=== PATIENT | female | born 1955 | race Caucasian/White ===

== ENCOUNTER 2019-06-01 19:40 | Observation (INO) | payer MEDICARE, OTHER ==
[2019-06-01] MEDS ORDERED: ASPIRIN 81 MG CHEW TAB ONE (19:48)
[2019-06-01] MEDS ORDERED: ASPIRIN 81 MG CHEW TAB PO ONE (19:50)
--- NOTE | 2019-06-01 19:52 | ED Physician Documentation ---
General Adult - HISTORIAN Historian: patient - HPI Stated Complaint: chest pain Chief Complaint: General Adult Onset: hours Timing: still present Severity: moderate Further Comments: yes (Pt is a 63 yo female with c/o chest pain. Pain is in central chest and does not radiate. Pt wonders if it could be heartburn. Pt denies n/v, diaphoreis, sob. Pt states she has strong family hx CAD. Mother with CAD at age 58. Sister with [place] < 6 mos ago, age 58. Pt presents with tachycardia. Pt has hx anxiety and took an Ativan tablet on her way here to ER.) - ROS CONST: no problems EYES/ENT: none CVS/RESP: chest pain, other (rapid heart rate) GI/: none MS/SKIN/LYMPH: none - PAST HX Past History: other (GERD, Anxiety, HLD, HTN) Allergies/Adverse Reactions: Allergies Allergy/AdvReac Type Severity Reaction Status Date / Time lamotrigine [From Lamictal] Allergy Mild Anaphylaxis Verified 06/01/19 20:48 acetaminophen [From Percocet] AdvReac Severe Rash Verified 06/01/19 20:48 atorvastatin [From Lipitor] AdvReac Severe Hives Verified 06/01/19 20:48 clopidogrel [From Plavix] AdvReac Severe Hives Verified 06/01/19 20:48 codeine AdvReac Severe Rash Verified 06/01/19 20:48 oxycodone [From Percocet] AdvReac Severe Rash Verified 06/01/19 20:48 tramadol AdvReac Severe Vomiting Verified 06/01/19 20:48 Home Medications: Ambulatory Orders Medication Instructions Recorded Aspirin [Aspir-Low] 81 mg PO HS 06/01/19 Buspirone HCl [Buspar] 15 mg PO DAILY 06/01/19 Cyclobenzaprine HCl 10 mg PO TID 06/01/19 Ferrous Sulfate [Slow Release Iron] 140 mg PO BID 06/01/19 Folic Acid/Multivit,Iron,[place] 1 tab PO DAILY 06/01/19 [One Daily Maximum Tablet] Losartan Potassium [Cozaar] 100 mg PO DAILY 06/01/19 Metoprolol Tartrate 100 mg PO BID 06/01/19 Pravastatin Sodium 40 mg PO HS 06/01/19 Rabeprazole Sodium 20 mg PO DAILY 06/01/19 Ropinirole HCl [Requip] 0.5 mg PO HS 06/01/19 Ubidecarenone/Vit E Acet [Co Q-10 1 cap PO HS 06/01/19 100 mg Softgel] amLODIPine BESYLATE [Norvasc] 2.5 mg PO DAILY 06/01/19 - SOCIAL HX Smoking History: quit greater than 1 year - FAMILY HX Family History: Yes (Mother, sister: CAD) - REVIEWED ASSESSMENTS Nursing Assessment Reviewed: Yes Vitals Reviewed: Yes Progress - Progress Progress: EKG #3 NSR, HR=67; T-wave inversions V1-V4. ASA 324 mg po CXR: neg GI cocktail - some improvement 1st EKG with artifact and ? ischemic changes 2nd & 3rd EKG with T-wave inversions V1-4, not seen on EKG #1 Admit for r/o KS to ER Provider, observation - EKG/XRAY/CT EKG: rhythm (sinus tachycardia, RV=042. Time 19:46 see EKG #2) - Additional EKG/XRAY/Consults EKG #2: NSR (HR=71; T-wave inversions V1-V4, not seen on EKG #1; time: 20:25) ED Results Lab/Radiology - Orders Orders: ED Orders Category Date Time Status Continuous EKG monitoring Q30M Care 06/01/19 19:51 Ordered Continuous Pulse Oximetry Q30M Care 06/01/19 19:[address] IV Lock 1T Care 06/01/19 19:51 Ordered CHEST 1VIEW [RAD] Stat Exams 06/01/19 Ordered CBC/PLATELET/DIFF Stat Lab 06/01/19 19:51 Ordered CKMB Stat Lab 06/01/19 19:51 Ordered CMP Stat Lab 06/01/19 19:51 Ordered CREATINE KINASE Stat Lab 06/01/19 19:51 Ordered NT BNP Stat Lab 06/01/19 Ordered TROPONIN I Stat Lab 06/01/19 19:51 Ordered Aspirin [Shruthi] Med 06/01/19 19:48 Discontinued 324 mg .ROUTE .STK-MED ONE Aspirin [Shruthi] Med 06/01/19 19:50 Once 324 mg PO NOW ONE Oxygen Daily Oxygen 06/01/19 20:00 Ordered EKG WITH COMPARISON Stat Ther 06/01/19 19:51 Ordered General Adult Physical Exam - PHYSICAL EXAM GENERAL APPEARANCE: moderate distress EENT: pharynx normal NECK: normal inspection, supple RESPIRATORY: no resp distress, chest non-tender, breath sounds normal CVS: no murmur, tachycardia ABDOMEN: soft, no organomegaly, normal bowel sounds BACK: normal inspection, no CVA tenderness SKIN: warm/dry, normal color EXTREMITIES: non-tender, normal range of motion, no evidence of injury, no edema NEURO: oriented X3, motor nml, sensation nml Discharge Clincal Impression: Chest pain Qualifiers: Chest pain type: unspecified Qualified Code(s): R07.9 - Chest pain, unspecified Condition: Stable Disposition: 09 ADMITTED INPATIENT Decision to Admit: [id number] Decision Time: 22:25
[2019-06-01] MEDS ORDERED: 0.9 % SODIUM CHLORIDE 500 ML IV ONE ×2 (20:01→21:04)
[2019-06-01] MEDS ORDERED: MAG HYDROX/ALUMINUM HYD/SIMETH 30 ML, Lidocaine 2% Viscous 15 ML PO ONE ×2 (20:03)
[2019-06-01] MEDS ORDERED: POTASSIUM CHLORIDE 20 MEQ TABLET.ER ONE (22:03)
[2019-06-01] MEDS ORDERED: POTASSIUM CHLORIDE 20 MEQ TABLET.ER PO ONE (22:06)
[2019-06-01 22:44] VITALS: BMI 31.8
[2019-06-01] MEDS ORDERED: rOPINIRole HCL 1 MG TABLET PO SCH (23:00)
[2019-06-02 02:04] VITALS: BP 137/86
--- NOTE | 2019-06-02 03:26 | Discharge Summary ---
Discharge Summary - [place]charge [place] Admission Date: 06/01/19 Discharge Date: 06/02/19 Discharge To: Other ([facility]) History of Present Illness: Pt is a 63 yo female with strong family hx CAD--mother with CAD at age 55, sister with recent [place] at age 58. Pt presented with chest pain to ER and with tachycardia with HR in 120's. 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 Pt received GI cocktail. Tachycardia and pain resolved, possibly because Ativan was taking effect, as well as GI cocktail. However, repeat EKG, done approx 1/2 hour after the first EKG, showed T-wave inversions in leads V1-4, which were not apparent on initial EKG. Pt initially declined transfer to . Hosp. Repeat cardiac enzymes, however, showed a change in Troponin level from <0.012 to 0.0.39. Will transfer pt to [facility] Dr. Finney. Pt is pain free at this time. Condition at Discharge: Stable Home Medications: Ambulatory Orders Medication Instructions Recorded Aspirin [Aspir-Low] 81 mg PO HS 06/01/19 Buspirone HCl [Buspar] 15 mg PO DAILY 06/01/19 Cyclobenzaprine HCl 10 mg PO TID 06/01/19 Ferrous Sulfate [Slow Release Iron] 140 mg PO BID 06/01/19 Folic Acid/Multivit,Iron,[place] 1 tab PO DAILY 06/01/19 [One Daily Maximum Tablet] Losartan Potassium [Cozaar] 100 mg PO DAILY 06/01/19 Metoprolol Tartrate 100 mg PO BID 06/01/19 Pravastatin Sodium 40 mg PO HS 06/01/19 Rabeprazole Sodium 20 mg PO DAILY 06/01/19 Ropinirole HCl [Requip] 0.5 mg PO HS 06/01/19 Ubidecarenone/Vit E Acet [Co Q-10 1 cap PO HS 06/01/19 100 mg Softgel] amLODIPine BESYLATE [Norvasc] 2.5 mg PO DAILY 06/01/19 Allergies/Adverse Reactions: Allergies Allergy/AdvReac Type Severity Reaction Status Date / Time lamotrigine [From Lamictal] Allergy Mild Anaphylaxis Verified 06/01/19 20:48 acetaminophen [From Percocet] AdvReac Severe Rash Verified 06/01/19 20:48 atorvastatin [From Lipitor] AdvReac Severe Hives Verified 06/01/19 20:48 clopidogrel [From Plavix] AdvReac Severe Hives Verified 06/01/19 20:48 codeine AdvReac Severe Rash Verified 06/01/19 20:48 oxycodone [From Percocet] AdvReac Severe Rash Verified 06/01/19 20:48 tramadol AdvReac Severe Vomiting Verified 06/01/19 20:48 Patient Problems: Current Active Problems Problem Status Onset Chest pain Acute
[2019-06-02] MEDS ORDERED: SOUTH LOCK-UP KEY 1 EACH EACH MC ONE (04:23)
[2019-06-02 06:51] LABS: BASOPHILS % 0.4 % (0.0-1.5); NEUTROPHILS # 4.1 # k/uL (1.4-7.7); eGFR (Non-African) > 60
[2019-06-02 06:54] LABS: eGFR (Non-African) > 60
[2019-06-02] MEDS ORDERED: amLODIPine BESYLATE 5 MG TABLET PO SCH (09:00)
[2019-06-02] MEDS ORDERED: METOPROLOL SUCCINATE 50 MG TAB.ER.24H PO SCH (09:00)
[2019-06-02] MEDS ORDERED: ASPIRIN EC 81 MG TABLET.DR PO SCH (09:00)
[2019-06-02] MEDS ORDERED: LOSARTAN POTASSIUM 50 MG TABLET PO SCH (09:00)
[2019-06-02] MEDS ORDERED: PANTOPRAZOLE SODIUM 40 MG TABLET.DR PO SCH (09:00)
[2019-06-02] MEDS ORDERED: PRAVASTATIN SODIUM 20 MG TABLET PO SCH (09:00)
[2019-06-02] MEDS ORDERED: busPIRone HCL 5 MG TABLET PO SCH (09:00)
[2019-06-02] MEDS ORDERED: FERROUS SULFATE 325 MG TABLET PO SCH (11:00)
== END 2019-06-02 04:25 | disposition short-term general hospital (02) ==
LOC: ED 19:40 → SOUTH 22:07
PROVIDERS: ADMIT Emergency Medicine; ATTEND Emergency Medicine
DX: R07.89 Other chest pain (principal)
CPT/HCPCS: 71045; 80053; 82550; 82553; 83880; 84484; 85025; 93005; 96360; 99218; 99282; 99284; J7060; A9270; A9270-GY; G0378; S1016